=== PATIENT | female | born 1960 | race Caucasian/White ===

== ENCOUNTER 2017-07-16 10:39 | Emergency (ER) | payer OTHER ==
[2017-07-16 13:48] LABS: URINE BLOOD (Dip) POC 1+ (NEGATIVE); URINE GLUCOSE (Dip) POC Negative (NEGATIVE); URINE KETONES (Dip) POC Negative (NEGATIVE); URINE LEUKOCYTE EST (Dip) POC 1+ (NEGATIVE); URINE NITRITE (Dip) POC Negative (NEGATIVE); URINE TOTAL PROTEIN POC Negative (NEGATIVE)
[2017-07-16] MEDS: ONDANSETRON 4 MG INJ IV (14:17)
[2017-07-16] MEDS: SOD CHLORIDE 0.9% 1,000 ML IV (14:17)
[2017-07-16 14:22] LABS: ADD MAN DIFF? NO
[2017-07-16 14:24] LABS: WHITE BLOOD COUNT 8.1 10^3/ul (4.8-10.8)
[2017-07-16 14:24] LABS: BASOPHILS % 0.2 % (0.0-2.0); EOSINOPHILS # 0.3 10^3/ul (0.0-0.5); EOSINOPHILS % 3.1 % (0.0-7.0); HEMATOCRIT 40.9 % (37.0-47.0); HEMOGLOBIN 14.2 g/dl (12.0-16.0); LYMPHOCYTES # 3.5 10^3/ul (0.8-2.9); LYMPHOCYTES % 43.4 % (15.0-51.0); MEAN CORPUSCULAR HEMOGLOBIN 29.7 pg (29.0-33.0); MEAN CORPUSCULAR HGB CONC 34.7 g/dl (32.0-37.0); MEAN CORPUSCULAR VOLUME 85.6 fl (82.0-101.0); MEAN PLATELET VOLUME 10.2 fl (7.4-10.4); MONOCYTE # 0.6 10^3/ul (0.3-0.9); MONOCYTES % 7.8 % (0.0-11.0); NEUTROPHIL # 3.7 10^3/ul (1.6-7.5); NEUTROPHILS % 45.4 % (39.0-77.0); PLATELET COUNT 231 10^3/UL (140-415); RED BLOOD COUNT 4.78 10^6/ul (4.20-5.40); RED CELL DISTRIBUTION WIDTH 12.4 % (11.5-14.5)
[2017-07-16 14:42] LABS: ALANINE AMINOTRANSFERASE 42 IU/L (13-69); ALBUMIN 4.6 g/dl (3.3-4.9); ALBUMIN/GLOBULIN RATIO 1.15; ALKALINE PHOSPHATASE 89 IU/L (42-121); ANION GAP 14 (8-16); ASPARTATE AMINO TRANSFERASE 30 IU/L (15-46); BILIRUBIN,INDIRECT 0.3 mg/dl (0-1.1); BILIRUBIN,TOTAL 0.3 mg/dl (0.2-1.3); BLOOD UREA NITROGEN 14 mg/dl (7-20); CALCIUM 9.5 mg/dl (8.4-10.2); CARBON DIOXIDE 35 mmol/L (21-31); CHLORIDE 103 mmol/L (97-110); CREATININE 0.67 mg/dl (0.44-1.00); GLUCOSE 104 mg/dl (70-220); LIPASE 65 U/L (23-300); POTASSIUM 4.2 mmol/L (3.5-5.1); SODIUM 148 mmol/L (135-144); TOTAL PROTEIN 8.6 g/dl (6.1-8.1)
[2017-07-16] MEDS: KETOROLAC 15 MG INJ IV (15:57)
== END 2017-07-16 17:17 | disposition home or self-care (01) ==
LOC: E/R 10:39
DX: K80.20 Calculus of gallbladder without cholecystitis without obstruction (principal); N39.0 Urinary tract infection, site not specified; I10 Essential (primary) hypertension
CPT/HCPCS: 36415; 76705; 80053; 81003; 83690; 85025; 96374; 96375; 99285-25

== ENCOUNTER 2018-04-08 10:37 | Emergency (ER) | payer OTHER | END 2018-04-08 11:48 | disposition home or self-care (01) | LOC: FTE 10:37 | DX: B34.9 Viral infection, unspecified (principal); I10 Essential (primary) hypertension; Z85.42 Personal history of malignant neoplasm of other parts of uterus | CPT/HCPCS: 99283; Z7502 ==

== ENCOUNTER 2018-06-10 11:16 | Inpatient (IN) | payer OTHER ==
[2018-06-10 12:01] LABS: ADD MAN DIFF? NO
[2018-06-10] MEDS: SODIUM CHLORIDE 0.9% 1L BAG IV* (12:07)
[2018-06-10 12:08] LABS: BASOPHILS % 0.2 % (0.0-2.0); HEMATOCRIT 38.5 % (37.0-47.0); HEMOGLOBIN 13.4 g/dl (12.0-16.0); LYMPHOCYTES # 1.4 10^3/ul (0.8-2.9); LYMPHOCYTES % 9.8 % (15.0-51.0); MEAN CORPUSCULAR HEMOGLOBIN 29.4 pg (29.0-33.0); MEAN CORPUSCULAR HGB CONC 34.8 g/dl (32.0-37.0); MEAN CORPUSCULAR VOLUME 84.4 fl (82.0-101.0); MEAN PLATELET VOLUME 10.6 fl (7.4-10.4); MONOCYTE # 0.7 10^3/ul (0.3-0.9); MONOCYTES % 4.5 % (0.0-11.0); NEUTROPHIL # 12.2 10^3/ul (1.6-7.5); NEUTROPHILS % 84.8 % (39.0-77.0); PLATELET COUNT 203 10^3/UL (140-415); RED BLOOD COUNT 4.56 10^6/ul (4.20-5.40); RED CELL DISTRIBUTION WIDTH 12.4 % (11.5-14.5)
[2018-06-10 12:08] LABS: WHITE BLOOD COUNT 14.3 10^3/ul (4.8-10.8)
[2018-06-10] MEDS: ACETAMINOPHEN 325 MG TAB PO ×2 (12:12→20:27)
[2018-06-10 12:13] LABS: ADD UMIC YES; UR ASCORBIC ACID NEGATIVE (NEGATIVE); UR BACTERIA FEW /HPF (NONE SEEN); UR BILIRUBIN (Dip) NEGATIVE (NEGATIVE); UR BLOOD (Dip) 3+ mg/dL (NEGATIVE); UR CLARITY SLIGHTLY CLOUDY (CLEAR); UR COLOR YELLOW (YELLOW); UR GLUCOSE (Dip) NEGATIVE (NEGATIVE); UR KETONES (Dip) TRACE mg/dL (NEGATIVE); UR LEUKOCYTE ESTERASE (Dip) TRACE Leu/ul (NEGATIVE); UR MUCUS MANY /HPF (NONE SEEN); UR NITRITE (Dip) NEGATIVE (NEGATIVE); UR NONSQUAMOUS EPITHELIAL CELL 1 /HPF (NONE SEEN); UR RBC 26 /HPF (0-5); UR SPECIFIC GRAVITY (Dip) 1.028 (1.003-1.030); UR SQUAMOUS EPITHELIAL CELL FEW /HPF (FEW); UR TOTAL PROTEIN (Dip) 1+ mg/dl (NEGATIVE); UR UROBILINOGEN (Dip) NEGATIVE (NEGATIVE); UR WBC 14 /HPF (0-5)
[2018-06-10 12:24] LABS: INR 1.07; PT RATIO 1.1
[2018-06-10 12:25] LABS: PARTIAL THROMBOPLASTIN TIME 34.7 Sec (23.0-35.0)
[2018-06-10] MEDS: MEROPENEM 1 GM/50ML(PMX) 50 ML IVPB ×2 (12:28→20:35)
[2018-06-10 12:31] LABS: ALANINE AMINOTRANSFERASE 28 IU/L (13-69); ALBUMIN 4.6 g/dl (3.3-4.9); ALBUMIN/GLOBULIN RATIO 1.17; ALKALINE PHOSPHATASE 95 IU/L (42-121); ANION GAP 13 (5-13); ASPARTATE AMINO TRANSFERASE 33 IU/L (15-46); BILIRUBIN,INDIRECT 0.5 mg/dl (0-1.1); BILIRUBIN,TOTAL 0.5 mg/dl (0.2-1.3); BLOOD UREA NITROGEN 14 mg/dl (7-20); CALCIUM 9.3 mg/dl (8.4-10.2); CARBON DIOXIDE 26 mmol/L (21-31); CHLORIDE 98 mmol/L (97-110); CREATININE 0.63 mg/dl (0.44-1.00); Estimated GFR > 60 mL/min (>60); GLUCOSE 146 mg/dl (70-220); LIPASE 33 U/L (23-300); POTASSIUM 3.4 mmol/L (3.5-5.1); SODIUM 137 mmol/L (135-144); TOTAL PROTEIN 8.5 g/dl (6.1-8.1)
[2018-06-10 12:32] LABS: LACTATE DEHYDROGENASE 566 IU/L (313-618)
[2018-06-10 12:35] LABS: LACTIC ACID 2.2 mmol/L (0.5-2.0)
[2018-06-10 12:42] LABS: TROPONIN-I < 0.012 ng/ml (0.000-0.120)
[2018-06-10] MEDS ORDERED: NACL 0.9% 3 ML SYG IV (14:30)
[2018-06-10] MEDS: SOD CHLORIDE 0.9% 1,000 ML IV (15:35)
[2018-06-10 17:04] LABS: LACTIC ACID 1.5 mmol/L (0.5-2.0)
[2018-06-10] MEDS: FAMOTIDINE 20 MG TAB PO (20:27)
[2018-06-11] MEDS: SOD CHLORIDE 0.9% 1,000 ML IV ×4 (00:17→20:47)
[2018-06-11] MEDS: DICYCLOMINE 10 MG CAP PO ×3 (00:43→23:31)
[2018-06-11] MEDS: LOPERAMIDE 2 MG CAP PO ×3 (00:43→20:54)
[2018-06-11] MEDS: ACETAMINOPHEN 325 MG TAB PO ×2 (03:49→17:19)
[2018-06-11 05:57] LABS: WHITE BLOOD COUNT 6.3 10^3/ul (4.8-10.8)
[2018-06-11 05:57] LABS: HEMATOCRIT 32.1 % (37.0-47.0); HEMOGLOBIN 10.7 g/dl (12.0-16.0); MEAN CORPUSCULAR HEMOGLOBIN 29.3 pg (29.0-33.0); MEAN CORPUSCULAR HGB CONC 33.3 g/dl (32.0-37.0); MEAN CORPUSCULAR VOLUME 87.9 fl (82.0-101.0); PLATELET COUNT 154 10^3/UL (140-415); RED BLOOD COUNT 3.65 10^6/ul (4.20-5.40); RED CELL DISTRIBUTION WIDTH 12.8 % (11.5-14.5)
[2018-06-11 05:59] LABS: ADD MAN DIFF? YES; POSITIVE DIFF @See below
[2018-06-11 06:22] LABS: ALANINE AMINOTRANSFERASE 28 IU/L (13-69); ALBUMIN 3.1 g/dl (3.3-4.9); ALKALINE PHOSPHATASE 58 IU/L (42-121); ANION GAP 9 (5-13); ASPARTATE AMINO TRANSFERASE 28 IU/L (15-46); BILIRUBIN,INDIRECT 0.3 mg/dl (0-1.1); BILIRUBIN,TOTAL 0.3 mg/dl (0.2-1.3); BLOOD UREA NITROGEN 9 mg/dl (7-20); CALCIUM 7.9 mg/dl (8.4-10.2); CARBON DIOXIDE 25 mmol/L (21-31); CHLORIDE 103 mmol/L (97-110); CHOL/HDL RATIO 3.3 RATIO; CHOLESTEROL 137 mg/dl (100-200); Estimated GFR > 60 mL/min (>60); GLUCOSE 103 mg/dl (70-220); HDL CHOLESTEROL 41 mg/dl (37-92); LDL CHOLESTEROL,CALCULATED 70 mg/dl; MAGNESIUM 1.6 mg/dl (1.7-2.5); PHOSPHORUS 2.8 mg/dl (2.5-4.9); SODIUM 137 mmol/L (135-144); TOTAL PROTEIN 6.2 g/dl (6.1-8.1); TRIGLYCERIDES 131 mg/dl (0-149)
[2018-06-11 06:26] LABS: POTASSIUM 2.9 mmol/L (3.5-5.1)
[2018-06-11 06:51] LABS: THYROID STIMULATING HORMONE 0.366 MIU/L (0.465-4.680)
[2018-06-11] MEDS: POTASSIUM CHLORIDE (SR) 20 MEQ TAB PO ×3 (07:05→10:31)
[2018-06-11 09:16] LABS: HEMOGLOBIN A1C 5.7 % (0-5.9)
[2018-06-11] MEDS: MEROPENEM 1 GM/50ML(PMX) 50 ML IVPB ×2 (09:50→20:50)
[2018-06-11] MEDS: FAMOTIDINE 20 MG TAB PO ×2 (09:50→20:48)
[2018-06-11] MEDS: MAGNESIUM SULFATE 2 GM/50 ML 50 ML IVPB (10:31)
[2018-06-11 10:48] LABS: BAND NEUTROPHILS #M 3.2 10^3/ul (0.0-0.6); BAND NEUTROPHILS % (M) 52 % (0-4); LYMPHOCYTES #M 0.8 10^3/ul (0.8-2.9); LYMPHOCYTES % (M) 14 % (15-51); MONOCYTE #M 0.2 10^3/ul (0.3-0.9); MONOCYTES % (M) 4 % (0-11); PLATELET ESTIMATE NORMAL; SEG NEUT #M 2.1 10^3/ul (1.6-7.5); SEGMENTED NEUTROPHILS (M) % 30 % (39-77); SMUDGE%M 34 % (0-0)
[2018-06-11] MEDS: ONDANSETRON 4 MG INJ IV (17:19)
[2018-06-12] MEDS: ACETAMINOPHEN 325 MG TAB PO ×2 (03:58→10:59)
[2018-06-12] MEDS: SOD CHLORIDE 0.9% 1,000 ML IV ×2 (06:17→08:29)
[2018-06-12 06:35] LABS: HEMATOCRIT 30.2 % (37.0-47.0); HEMOGLOBIN 10.2 g/dl (12.0-16.0); MEAN CORPUSCULAR HEMOGLOBIN 29.7 pg (29.0-33.0); MEAN CORPUSCULAR HGB CONC 33.8 g/dl (32.0-37.0); MEAN CORPUSCULAR VOLUME 87.8 fl (82.0-101.0); MEAN PLATELET VOLUME 10.3 fl (7.4-10.4); PLATELET COUNT 143 10^3/UL (140-415); RED BLOOD COUNT 3.44 10^6/ul (4.20-5.40)
[2018-06-12 06:35] LABS: WHITE BLOOD COUNT 5.1 10^3/ul (4.8-10.8)
[2018-06-12 06:38] LABS: ADD MAN DIFF? YES; POSITIVE DIFF @See below
[2018-06-12 07:18] LABS: ANION GAP 7 (5-13); BLOOD UREA NITROGEN 6 mg/dl (7-20); CALCIUM 7.8 mg/dl (8.4-10.2); CARBON DIOXIDE 26 mmol/L (21-31); CHLORIDE 106 mmol/L (97-110); CREATININE 0.54 mg/dl (0.44-1.00); Estimated GFR > 60 mL/min (>60); GLUCOSE 110 mg/dl (70-220); MAGNESIUM 2.1 mg/dl (1.7-2.5); POTASSIUM 3.2 mmol/L (3.5-5.1); SODIUM 139 mmol/L (135-144)
[2018-06-12 08:02] LABS: ANISOCYTOSIS 1+ (0-0); BAND NEUTROPHILS #M 1.3 10^3/ul (0.0-0.6); BAND NEUTROPHILS % (M) 27 % (0-4); GIANT THROMBO% (M) 2 % (0-0); LYMPHOCYTES #M 1.5 10^3/ul (0.8-2.9); LYMPHOCYTES % (M) 30 % (15-51); MICROCYTOSIS 1+ (0-0); MONOCYTE #M 0.3 10^3/ul (0.3-0.9); MONOCYTES % (M) 7 % (0-11); PLATELET ESTIMATE NORMAL; SEG NEUT #M 1.9 10^3/ul (1.6-7.5); SEGMENTED NEUTROPHILS (M) % 36 % (39-77); SMUDGE%M 21 % (0-0); TOXIC GRANULATION 1+ (0-0)
[2018-06-12] MEDS: FAMOTIDINE 20 MG TAB PO ×2 (08:28→20:39)
[2018-06-12] MEDS: MEROPENEM 1 GM/50ML(PMX) 50 ML IVPB (08:28)
[2018-06-12] MEDS: CIPROFLOXACIN 400MG/D5W 200 ML IVPB ×2 (09:26→20:39)
[2018-06-12] MEDS: metroNIDAZOLE 500 MG/NS (PMX) 100 ML IVPB ×3 (10:55→23:21)
[2018-06-12] MEDS: ONDANSETRON 4 MG INJ IV (10:59)
[2018-06-12] MEDS: BISACODYL (EC) 5 MG TAB PO (11:37)
[2018-06-12] MEDS ORDERED: morphine 2 MG INJ IV (13:00)
[2018-06-12] MEDS: MAGNESIUM CITRATE 300 ML BTL PO (17:05)
[2018-06-12] MEDS: POLYETHYLENE GLYCOL 3350 119 GM POWDER PO (17:55)
[2018-06-12 19:59] LABS: OCCULT BLOOD STOOL NEGATIVE (NEGATIVE)
[2018-06-13] MEDS: SOD CHLORIDE 0.9% 1,000 ML IV ×3 (01:45→21:13)
[2018-06-13 06:18] LABS: WHITE BLOOD COUNT 4.9 10^3/ul (4.8-10.8)
[2018-06-13 06:18] LABS: HEMATOCRIT 32.5 % (37.0-47.0); HEMOGLOBIN 10.9 g/dl (12.0-16.0); MEAN CORPUSCULAR HEMOGLOBIN 29.5 pg (29.0-33.0); MEAN CORPUSCULAR HGB CONC 33.5 g/dl (32.0-37.0); MEAN CORPUSCULAR VOLUME 87.8 fl (82.0-101.0); MEAN PLATELET VOLUME 10.6 fl (7.4-10.4); PLATELET COUNT 185 10^3/UL (140-415); RED CELL DISTRIBUTION WIDTH 12.9 % (11.5-14.5)
[2018-06-13 06:23] LABS: ADD MAN DIFF? YES; POSITIVE DIFF @See below
[2018-06-13] MEDS: metroNIDAZOLE 500 MG/NS (PMX) 100 ML IVPB ×3 (06:37→21:22)
[2018-06-13] MEDS: POLYETHYLENE GLYCOL 3350 119 GM POWDER PO (06:37)
[2018-06-13] MEDS: ACETAMINOPHEN 325 MG TAB PO ×2 (06:46→14:30)
[2018-06-13 07:00] LABS: ANION GAP 9 (5-13); BLOOD UREA NITROGEN 4 mg/dl (7-20); CALCIUM 8.4 mg/dl (8.4-10.2); CARBON DIOXIDE 23 mmol/L (21-31); CHLORIDE 107 mmol/L (97-110); CREATININE 0.54 mg/dl (0.44-1.00); Estimated GFR > 60 mL/min (>60); GLUCOSE 108 mg/dl (70-220); POTASSIUM 3.2 mmol/L (3.5-5.1); SODIUM 139 mmol/L (135-144)
[2018-06-13] MEDS: BISACODYL (EC) 5 MG TAB PO (07:14)
[2018-06-13 07:18] LABS: BAND NEUTROPHILS #M 0.8 10^3/ul (0.0-0.6); BAND NEUTROPHILS % (M) 18 % (0-4); BASOPHILS % (M) 1 % (0-2); LYMPHOCYTES #M 1.4 10^3/ul (0.8-2.9); LYMPHOCYTES % (M) 30 % (15-51); MONOCYTE #M 0.4 10^3/ul (0.3-0.9); MONOCYTES % (M) 10 % (0-11); PLATELET ESTIMATE NORMAL; POLYCHROMASIA 1+ (0-0); SEGMENTED NEUTROPHILS (M) % 41 % (39-77); SMUDGE%M 33 % (0-0); SPHEROCYTES 1+ (0-0)
[2018-06-13] MEDS: FAMOTIDINE 20 MG TAB PO ×2 (08:21→21:13)
[2018-06-13] MEDS: CIPROFLOXACIN 400MG/D5W 200 ML IVPB ×2 (08:21→21:13)
[2018-06-13] MEDS ORDERED: VANCOMYCIN 1 GM (PMX) 250 ML IVPB (12:00)
[2018-06-13] MEDS: POTASSIUM CHLORIDE 100 ML IVPB (12:43)
[2018-06-13] MEDS: PROPOFOL 60 ML (19:56)
[2018-06-13] MEDS: LIDOCAINE 2% (SDV) 5 ML INJ (19:56)
[2018-06-14] MEDS: ACETAMINOPHEN 325 MG TAB PO (06:05)
[2018-06-14] MEDS: metroNIDAZOLE 500 MG/NS (PMX) 100 ML IVPB ×3 (06:05→22:02)
[2018-06-14 06:32] LABS: HEMATOCRIT 30.1 % (37.0-47.0); HEMOGLOBIN 10.3 g/dl (12.0-16.0); MEAN CORPUSCULAR HEMOGLOBIN 28.9 pg (29.0-33.0); MEAN CORPUSCULAR HGB CONC 34.2 g/dl (32.0-37.0); MEAN CORPUSCULAR VOLUME 84.6 fl (82.0-101.0); MEAN PLATELET VOLUME 10.2 fl (7.4-10.4); PLATELET COUNT 192 10^3/UL (140-415); RED BLOOD COUNT 3.56 10^6/ul (4.20-5.40); RED CELL DISTRIBUTION WIDTH 12.8 % (11.5-14.5)
[2018-06-14 06:32] LABS: WHITE BLOOD COUNT 5.3 10^3/ul (4.8-10.8)
[2018-06-14 06:33] LABS: POSITIVE DIFF @See below
[2018-06-14 06:34] LABS: ADD MAN DIFF? YES
[2018-06-14 07:05] LABS: ANISOCYTOSIS 2+ (0-0); BAND NEUTROPHILS #M 0.3 10^3/ul (0.0-0.6); BAND NEUTROPHILS % (M) 7 % (0-4); EOSINOPHILS % (M) 4 % (0-7); GIANT THROMBO% (M) 1 % (0-0); LYMPHOCYTES #M 1.4 10^3/ul (0.8-2.9); LYMPHOCYTES % (M) 27 % (15-51); MICROCYTOSIS 2+ (0-0); MONOCYTE #M 0.2 10^3/ul (0.3-0.9); MONOCYTES % (M) 5 % (0-11); PLATELET ESTIMATE NORMAL; POLYCHROMASIA 1+ (0-0); REACTIVE LYMPHOCYTES #M 0.2 10^3/ul (0.0-0.0); REACTIVE LYMPHOCYTES% (M) 4 % (0-0); SEG NEUT #M 2.8 10^3/ul (1.6-7.5); SEGMENTED NEUTROPHILS (M) % 53 % (39-77); SMUDGE%M 3 % (0-0)
[2018-06-14 07:13] LABS: ANION GAP 8 (5-13); BLOOD UREA NITROGEN 6 mg/dl (7-20); CALCIUM 8.4 mg/dl (8.4-10.2); CARBON DIOXIDE 24 mmol/L (21-31); CHLORIDE 109 mmol/L (97-110); CREATININE 0.54 mg/dl (0.44-1.00); Estimated GFR > 60 mL/min (>60); GLUCOSE 91 mg/dl (70-220); POTASSIUM 3.7 mmol/L (3.5-5.1); SODIUM 141 mmol/L (135-144)
[2018-06-14] MEDS: CIPROFLOXACIN 400MG/D5W 200 ML IVPB ×2 (08:08→20:09)
[2018-06-14] MEDS: FAMOTIDINE 20 MG TAB PO ×2 (08:08→20:10)
[2018-06-14] MEDS: SOD CHLORIDE 0.9% 1,000 ML IV ×2 (08:08→17:20)
[2018-06-14] MEDS ORDERED: IBUPROFEN 200 MG TAB PO (09:30)
[2018-06-14] MEDS: IBUPROFEN 400 MG TAB PO (10:09)
[2018-06-15] MEDS: ACETAMINOPHEN 325 MG TAB PO (00:06)
[2018-06-15] MEDS: SOD CHLORIDE 0.9% 1,000 ML IV (05:40)
[2018-06-15] MEDS: metroNIDAZOLE 500 MG/NS (PMX) 100 ML IVPB ×3 (05:41→22:31)
[2018-06-15] MEDS: CIPROFLOXACIN 400MG/D5W 200 ML IVPB ×2 (08:38→21:08)
[2018-06-15] MEDS: FAMOTIDINE 20 MG TAB PO ×2 (08:38→21:08)
[2018-06-15] MEDS: POTASSIUM CHLORIDE 20 MEQ in LACTATED RINGER'S 1,000 ML IV ×2 (12:48→22:31)
[2018-06-15 15:08] LABS: IRON 41 ug/dl (35-150)
[2018-06-15 15:17] LABS: % IRON SATURATION 16 % SAT (22-52); TOTAL IRON BINDING CAPACITY 261 ug/dl (241-421)
[2018-06-15] MEDS: IBUPROFEN 400 MG TAB PO (15:19)
[2018-06-15 15:56] LABS: HEPATITIS C VIRAL ANTIBODY NEGATIVE (NEGATIVE)
[2018-06-16] MEDS: metroNIDAZOLE 500 MG/NS (PMX) 100 ML IVPB ×3 (05:10→21:38)
[2018-06-16 06:44] LABS: HEMATOCRIT 30.5 % (37.0-47.0); HEMOGLOBIN 10.4 g/dl (12.0-16.0); MEAN CORPUSCULAR HEMOGLOBIN 29.3 pg (29.0-33.0); MEAN CORPUSCULAR HGB CONC 34.1 g/dl (32.0-37.0); MEAN CORPUSCULAR VOLUME 85.9 fl (82.0-101.0); MEAN PLATELET VOLUME 9.8 fl (7.4-10.4); PLATELET COUNT 257 10^3/UL (140-415); RED BLOOD COUNT 3.55 10^6/ul (4.20-5.40); RED CELL DISTRIBUTION WIDTH 12.6 % (11.5-14.5)
[2018-06-16 06:48] LABS: POSITIVE DIFF @See below
[2018-06-16 06:49] LABS: ADD MAN DIFF? YES
[2018-06-16 07:15] LABS: ALANINE AMINOTRANSFERASE 78 IU/L (13-69); ALBUMIN 3.2 g/dl (3.3-4.9); ALBUMIN/GLOBULIN RATIO 1.03; ALKALINE PHOSPHATASE 93 IU/L (42-121); ANION GAP 9 (5-13); ASPARTATE AMINO TRANSFERASE 81 IU/L (15-46); BILIRUBIN,INDIRECT 0.2 mg/dl (0-1.1); BILIRUBIN,TOTAL 0.2 mg/dl (0.2-1.3); BLOOD UREA NITROGEN 7 mg/dl (7-20); CALCIUM 8.4 mg/dl (8.4-10.2); CARBON DIOXIDE 27 mmol/L (21-31); CHLORIDE 108 mmol/L (97-110); CREATININE 0.54 mg/dl (0.44-1.00); Estimated GFR > 60 mL/min (>60); GLUCOSE 103 mg/dl (70-220); POTASSIUM 3.8 mmol/L (3.5-5.1); SODIUM 144 mmol/L (135-144); TOTAL PROTEIN 6.3 g/dl (6.1-8.1)
[2018-06-16] MEDS: CIPROFLOXACIN 400MG/D5W 200 ML IVPB ×2 (08:40→20:40)
[2018-06-16] MEDS: FAMOTIDINE 20 MG TAB PO ×2 (08:42→20:40)
[2018-06-16 09:08] LABS: BAND NEUTROPHILS #M 0.1 10^3/ul (0.0-0.6); BAND NEUTROPHILS % (M) 3 % (0-4); BASOPHILS % (M) 1 % (0-2); EOSINOPHILS % (M) 6 % (0-7); LYMPHOCYTES #M 2.2 10^3/ul (0.8-2.9); LYMPHOCYTES % (M) 38 % (15-51); MONOCYTE #M 0.1 10^3/ul (0.3-0.9); MONOCYTES % (M) 2 % (0-11); PLASMAC%(M) 1 % (0); PLATELET ESTIMATE NORMAL; POLYCHROMASIA 1+ (0-0); REACTIVE LYMPHOCYTES #M 0.4 10^3/ul (0.0-0.0); REACTIVE LYMPHOCYTES% (M) 7 % (0-0); SEG NEUT #M 2.5 10^3/ul (1.6-7.5); SEGMENTED NEUTROPHILS (M) % 42 % (39-77); SMUDGE%M 11 % (0-0)
[2018-06-16 10:06] LABS: ERYTHROCYTE SEDIMENTATION RATE 25 mm/Hr (0-30)
[2018-06-16] MEDS: FERROUS FUMARATE (SR) TAB PO (14:12)
[2018-06-16] MEDS: POTASSIUM CHLORIDE 20 MEQ in LACTATED RINGER'S 1,000 ML IV (18:09)
[2018-06-16] MEDS: ONDANSETRON 4 MG INJ IV (21:38)
[2018-06-17] MEDS: POTASSIUM CHLORIDE 20 MEQ in LACTATED RINGER'S 1,000 ML IV ×2 (03:24→11:54)
[2018-06-17] MEDS: metroNIDAZOLE 500 MG/NS (PMX) 100 ML IVPB ×2 (05:08→13:51)
[2018-06-17] MEDS: FAMOTIDINE 20 MG TAB PO (09:04)
[2018-06-17] MEDS: FERROUS FUMARATE (SR) TAB PO (09:04)
[2018-06-17] MEDS: IBUPROFEN 400 MG TAB PO (09:04)
[2018-06-17] MEDS: CIPROFLOXACIN 400MG/D5W 200 ML IVPB (09:05)
== END 2018-06-17 16:00 | disposition home or self-care (01) | DRG 872 ==
LOC: E/R 11:16 → 5EC 06-15 18:20 → 6WM 12:44
PROC: 0DBE8ZX Excision of Large Intestine, Via Natural or Artificial Opening Endoscopic, Diagnostic (ICD-10-PCS; principal; 2018-06-13 15:25)
DX: A41.9 Sepsis, unspecified organism (principal); N39.0 Urinary tract infection, site not specified; A09 Infectious gastroenteritis and colitis, unspecified; E87.6 Hypokalemia; D64.9 Anemia, unspecified; I10 Essential (primary) hypertension; R65.20 Severe sepsis without septic shock; K80.20 Calculus of gallbladder without cholecystitis without obstruction
CPT/HCPCS: 36415; 70450; 71045; 74176; 80048; 80053; 80061; 81001; 82270; 82728; 83036; 83540; 83605; 83615; 83690; 83735; 84100; 84443; 84484; 85025; 85610; 85651; 85730; 86803; 87040; 87045; 87075; 87086; 87400; 88305; 93005; 96365; 99291-25

== ENCOUNTER 2018-12-27 15:32 | Emergency (ER) | payer OTHER ==
[2018-12-27] MEDS: KETOROLAC 30 MG INJ IM (16:45)
== END 2018-12-27 17:33 | disposition home or self-care (01) ==
LOC: FTE 15:32
DX: M25.531 Pain in right wrist (principal); I10 Essential (primary) hypertension
CPT/HCPCS: 73110; 73110-RT; 96372; 99284-25